=== PATIENT | female | born 1945 | race Caucasian/White ===

== ENCOUNTER 2017-12-14 15:00 | Emergency (ER) | payer MEDICARE ==
[2017-12-14] MEDS ORDERED: Lidocaine 1% 20 ML MDV ONE (15:27)
[2017-12-14] MEDS ORDERED: Cephalexin 500 MG CAP ONE (16:03)
[2017-12-14] MEDS ORDERED: Bacitracin Zinc 1 Packet ONE ×2 (18:06→18:13)
== END 2017-12-14 18:51 | disposition home or self-care (01) ==
LOC: MADERS 15:00
DX: S01.01XA Laceration without foreign body of scalp, initial encounter (principal); I10 Essential (primary) hypertension; W01.10XA Fall on same level from slipping, tripping and stumbling with subsequent striking against unspecified object, initial encounter; Y92.009 Unspecified place in unspecified non-institutional (private) residence as the place of occurrence of the external cause
CPT/HCPCS: 12002; J2001